=== PATIENT | male | born 1965 | race Caucasian/White ===

== ENCOUNTER 2016-11-07 08:28 | Emergency (ER) | payer BC, OTHER ==
[~2016-11-07] VITALS: Ht 188 cm; Wt 108.9 kg
[~2016-11-07 08:28] MED LIST: ADVAIR HFA115 MCG/21 INH; BACTRIM DS TAB1 EACH PO; BENZONATATE100 MG PO; CEFUROXIME250 MG PO; CLARITIN10 MG PO; COLACE 100 MG100 MG PO; COLCRYS0.6 MG PO; DOXYCYCLINE 10100 MG PO; ELIMITE60 GM TP; ERYTHROMYCIN E3.5 G1 OP; FLOMAX0.4 MG PO; FLONASE 0.05%50 MCG NASAL; FOLIC ACID 1 MG1 MG PO; FOLIC ACID1 MG PO; GARAMYCIN5 M1 OP; IBUPROFEN 600600 M1 PO; INDOMETHACIN 2525 MG PO; KEFLEX500 MG PO; LEVAQUIN 500 M500 M2 PO; LEVAQUIN 750 M750 MG PO; LORTAB 5-500 T1 EAC1 PO; METHOTREXATE 22.5 MG; NOHOMEMEDICATIONS; NORCO 5-325 TA1 EACH PO; NORFLEX100 MG PO; OSELB75 PO; PAIN MED; PAXIL10 MG; PENICILLIN VK500 M1 PO; PERCOCET 5-3251 EACH PO; PHENERGAN 25 MG25 M1 PO; PREDNISONE 20 M20 MG PO; PROAIR HFA8.5 GM INH; PROTONIX40 M1 PO; SENNA8.6 MG PO; VANCOMYCIN1.25 GM/21 IV; VICODIN 5-3001 EACH PO; ZEGERID 20 MG1 EACH PO; ZITHROMAX250 MG NG; ZPAK PO
[2016-11-07] MEDS ORDERED: PROTONIX 20 MG20 M1 PO (09:08)
[2016-11-07] MEDS ORDERED: TOBREX5 ML OPHTHALMIC (10:00)
[2016-11-07] MEDS ORDERED: NORCO 5-325 TA1 EACH PO (10:00)
== END 2016-11-07 11:09 | disposition home or self-care (01) ==
LOC: ER 08:28
DX: S05.01XA Injury of conjunctiva and corneal abrasion without foreign body, right eye, initial encounter (principal); H20.9 Unspecified iridocyclitis; M06.9 Rheumatoid arthritis, unspecified; Z98.890 Other specified postprocedural states; X58.XXXA Exposure to other specified factors, initial encounter; Y93.89 Activity, other specified; Y92.89 Other specified places as the place of occurrence of the external cause; Y99.8 Other external cause status

== ENCOUNTER 2016-11-27 08:39 | Inpatient (IN) | payer BC, OTHER ==
[2016-11-27] VITALS (7 sets, daily range): BP systolic 87–123; BP diastolic 55–80
[~2016-11-27] VITALS: Ht 188 cm; Wt 119.2 kg
--- NOTE | ~2016-11-27 | 2DMMODE ---
[facility] [address] [address] 2 D/M-MODE ECHOCARDIOGRAM Name: JODY HASSAN Room #: 213-P ADM IN M.R.#: [id number] Admission: 11/27/16 Attend Phys: Payam Ch Discharge: Date of : 61 Date of Service: 11/28/16 1048 Report #: [id number] THIS REPORT FOR: //name// APPROVED REPORT Study performed: 11/28/2016 09:36:26 EXAM: Comprehensive 2D, Doppler, and color-flow Echocardiogram Patient Location: Bedside Room #: 213 Status: routine Other Information Study Quality: Adequate Indications Chest Pain Hx SOA, CP radiates to jaw 2D Dimensions RVDd: 31.51 mm LVEF(%): 65.80 (>50%) IVSd: 11.46 (7-11mm) LVOT Diam: 23.00 (18-24mm) LVDd: 48.37 mm PWd: 10.10 (7-11mm) Ascending Ao: 34.21 (22-36mm) LVDs: 30.84 (25-40mm) Aortic Root: 37.70 mm Thomas's LVEF: 65.80 % Volumes Left Atrial Volume (Systole) Single Plane 4CH: 30.48 mL Single Plane 2CH: 41.71 mL LA ESV Index: 17.00 mL/m2 Aortic Valve AoV Peak Berhane.: 1.24 m/s AO Peak Gr.: 6.15 mmHg LVOT Max P.22 mmHg LVOT Max V: 1.14 m/s OLEKSANDR Vmax: 3.82 cm2 Mitral Valve E/A Ratio: 1.8 MV Decel. Time: 232.47 ms MV E Max Berhane.: 1.03 m/s MV A Berhane.: 0.56 m/s MV PHT: 67.42 ms [facility] [place] [address] 2 D/M-MODE ECHOCARDIOGRAM Name: JODY HASSAN Room #: 213-P [facility] IN .R.#: [id number] Admission: 11/27/16 Attend Phys: Payam Ch Discharge: Date of : 61 Date of Service: 11/28/16 1048 Report #: [id number] IVRT: 110.73 ms Pulmonary Valve PV Peak Berhane.: 0.90 m/s PV Peak Gr.: 3.22 mmHg Pulmonary Vein P Vein S: 0.45 m/s P Vein A: 0.25 m/s P Vein D: 0.41 m/s P Vein A Dur.: 96.9 msec P Vein S/D Ratio: 1.10 Tricuspid Valve TR Peak Berhane.: 2.48 m/s RAP Estimate: 5.00 mmHg TR Peak Gr.: 24.57 mmHg PA Pressure: 30.00 mmHg Left Ventricle The left ventricle is normal size. There is normal LV segmental wall motion. There is normal left ventricular wall thickness. The left ventricular systolic function is normal. The left ventricular ejection fraction is within the normal range. LVEF is 55-60%. The left ventricular diastolic function is normal. Right Ventricle The right ventricle is normal size. The right ventricular systolic function is normal. Atria The left atrium size is normal. The right atrium size is normal. Aortic Valve Aortic valve leaflets are thickened. No aortic regurgitation is present. There is no aortic valvular stenosis. Mitral Valve The mitral valve is normal in structure. There is no mitral valve regurgitation noted. No evidence of mitral valve stenosis. Tricuspid Valve The tricuspid valve is normal in structure. There is trace tricuspid regurgitation. The right atrial pressure is estimated at 5 mmHg. There is mild pulmonary hypertension with an estimated PAP of 30 mmHg. Pulmonic Valve The pulmonary valve is normal in structure. [place] [address] 2 D/M-MODE ECHOCARDIOGRAM Name: JODY HASSAN Room #: 213-P [facility] IN ..#: [id number] Admission: 11/27/16 Attend Phys: Payam Ch Discharge: Date of : 61 Date of Service: 11/28/16 1048 Report #: [id number] valvular regurgitation. Great Vessels The aortic root is normal in size. The ascending aorta is normal in size. IVC is normal in size and collapses >50% with inspiration. Pericardium There is no pericardial effusion. <Conclusion> The left ventricle is normal size. LVEF is 55-60%. Aortic valve leaflets are thickened. No aortic regurgitation is present. There is no aortic valvular stenosis. The mitral valve is normal in structure. There is no mitral valve regurgitation noted. No evidence of mitral valve stenosis. The tricuspid valve is normal in structure. There is trace tricuspid regurgitation. The right atrial pressure is estimated at 5 mmHg. There is mild pulmonary hypertension with an estimated PAP of 30 mmHg. The pulmonary valve is normal in structure. <ELECTRONICALLY SIGNED> By: Niko Ness MD 11/28/16 1048 1048 1048 Niko Ness MD /INF
[~2016-11-27 08:39] MED LIST changes: +PROTONIX 20 MG20 M1 PO; +TOBREX5 ML OPHTHALMIC
[2016-11-27] MEDS ORDERED: XELJANZ XR11 MG PO (08:51)
[2016-11-27 09:08] LABS: ABSOLUTE NEUTROPHILS 5.2 thou/uL (1.4-8.2); BASOPHILS 0.4 % (0.0-2.0); HEMATOCRIT 43.5 % (42.0-52.0); LYMPHOCYTES 17.4 % (24.0-44.0); MCH 33.2 pg (26.0-34.0); MCHC 34.5 g/dL (28.0-37.0); MCV 96.4 fL (80.0-100.0); MONOCYTES 4.3 % (1.0-8.0); PLATELET COUNT 175 thou/uL (150-400); POLYS 73.9 % (36.0-66.0); RBC 4.52 mil/uL (4.50-6.00); RDW 13.5 % (10.5-14.5)
[2016-11-27 09:09] LABS: MANUAL DIFF NO
[2016-11-27 09:16] LABS: ANION GAP 8 mmol/L (7-16); BUN 16 mg/dL (7-18); CALCIUM 8.5 mg/dL (8.5-10.1); CHLORIDE 106 mmol/L (98-107); CO2 23 mmol/L (21-32); GLUCOSE 111 mg/dL (74-106); SODIUM 137 mmol/L (136-145)
[2016-11-27 09:20] LABS: PROTIME 10.7 Seconds (9.3-11.4)
[2016-11-27 09:27] LABS: ALBUMIN 3.4 g/dL (3.4-5.0); ALKALINE PHOSPHATASE 93 U/L (46-116); NT-PRO BRAIN NAT PEPTIDE 29 pg/mL (<300); SGOT 39 U/L (15-37); SGPT 69 U/L (30-65); TOTAL BILIRUBIN 2.1 mg/dL (<0.1-1.0); TROPONIN-I < 0.04 ng/mL (<0.04-0.07)
[2016-11-28 03:51] LABS: CHOLESTEROL 159 mg/dL (<200); HDL CHOLESTEROL 35 mg/dL (>40); LDL CHOLESTEROL 110 mg/dL (<100); TC:HDL 4.5 Ratio (Not establshd); TRIGLYCERIDE 71 mg/dL (<150); VLDL 14 mg/dL (<40)
[2016-11-28 03:52] VITALS: BP 97/55
[2016-11-28 07:26] VITALS: BP 106/63
[2016-11-28 11:52] VITALS: BP 125/75
[2016-11-28 12:04] LABS: ALBUMIN 3.1 g/dL (3.4-5.0); DIRECT BILIRUBIN 0.2 mg/dL (<0.1-0.3); TOTAL BILIRUBIN 1.3 mg/dL (<0.1-1.0); TOTAL PROTEIN 6.5 g/dL (6.4-8.2)
[2016-11-28 12:45] VITALS: BP 125/75
[2016-11-28 14:08] VITALS: BP 125/75
== END 2016-11-28 14:05 | disposition home or self-care (01) | DRG 313 ==
LOC: ER 08:39 → 2N 11:26 → EROBS 11:26 → 2N 12:43
PROVIDERS: Emergency Medicine; Family Medicine; Nurse Practitioner
DX: R07.89 Other chest pain (principal); K29.70 Gastritis, unspecified, without bleeding; B35.4 Tinea corporis; M06.9 Rheumatoid arthritis, unspecified; K57.90 Diverticulosis of intestine, part unspecified, without perforation or abscess without bleeding; R91.8 Other nonspecific abnormal finding of lung field; K21.9 Gastro-esophageal reflux disease without esophagitis; Z79.899 Other long term (current) drug therapy; Z88.0 Allergy status to penicillin; Z87.01 Personal history of pneumonia (recurrent); Z86.14 Personal history of Methicillin resistant Staphylococcus aureus infection; Z83.3 Family history of diabetes mellitus; Z82.49 Family history of ischemic heart disease and other diseases of the circulatory system; Z80.9 Family history of malignant neoplasm, unspecified
CPT/HCPCS: 10081

== ENCOUNTER 2017-01-22 10:36 | Emergency (ER) | payer BC, OTHER ==
[~2017-01-22] VITALS: Ht 188 cm; Wt 108.9 kg
[~2017-01-22 10:36] MED LIST changes: +XELJANZ XR11 MG PO
[2017-01-22] MEDS ORDERED: NORFLEX100 MG PO (12:09)
[2017-01-22] MEDS ORDERED: MEDROLDOSEPACK PO (12:09)
== END 2017-01-22 12:28 | disposition home or self-care (01) ==
LOC: ER 10:36
DX: M54.32 Sciatica, left side (principal); B35.9 Dermatophytosis, unspecified; M70.62 Trochanteric bursitis, left hip; M06.9 Rheumatoid arthritis, unspecified; Z87.01 Personal history of pneumonia (recurrent); Z98.890 Other specified postprocedural states; Z88.0 Allergy status to penicillin

== ENCOUNTER 2017-02-19 18:36 | Emergency (ER) | payer BC, OTHER ==
[~2017-02-19] VITALS: Ht 188 cm; Wt 108.9 kg
[~2017-02-19 18:36] MED LIST changes: +MEDROLDOSEPACK PO
[2017-02-19 19:27] LABS: CALCIUM 8.5 mg/dL (8.5-10.1); POTASSIUM 3.8 mmol/L (3.5-5.1)
[2017-02-19 19:38] LABS: ABSOLUTE NEUTROPHILS 5.4 thou/uL (1.4-8.2); BASOPHILS 0.6 % (0.0-2.0); EOSINOPHILS 2.6 % (0.0-3.0); HEMATOCRIT 42.4 % (42.0-52.0); HEMOGLOBIN 15.2 gm/dL (14.0-18.0); LYMPHOCYTES 23.2 % (24.0-44.0); MANUAL DIFF NO; MCH 33.6 pg (26.0-34.0); MCHC 35.8 g/dL (28.0-37.0); MCV 93.7 fL (80.0-100.0); MONOCYTES 9.9 % (1.0-8.0); PLATELET COUNT 171 thou/uL (150-400); POLYS 63.7 % (36.0-66.0); RBC 4.53 mil/uL (4.50-6.00); RDW 13.1 % (10.5-14.5); WBC 8.4 thou/uL (4.0-11.0)
== END 2017-02-19 20:24 | disposition home or self-care (01) ==
LOC: ER 18:36
PROVIDERS: Nurse Practitioner
DX: J06.9 Acute upper respiratory infection, unspecified (principal); Z88.0 Allergy status to penicillin; M06.9 Rheumatoid arthritis, unspecified

== ENCOUNTER 2017-02-25 20:11 | Emergency (ER) | payer BC, OTHER ==
[~2017-02-25] VITALS: Ht 188 cm; Wt 108.9 kg
--- NOTE | ~2017-02-25 | EKG ---
[address] [place] [address] ELECTROCARDIOGRAM REPORT Name: JODY HASSAN [facility] [id number] Admission: 02/25/17 Attend Phys: Discharge: 02/25/17 Date of : 61 Report #: [id number] THIS REPORT FOR: //name// [facility] ED Test Date: 2017-02-25 Test Time: 20:28:52 Pat Name: JODY HASSAN Department: Room: Gender: M Toe Stapler: [id number] : 1965 Requested By: Ty Lopez Order Number: [id number] MD: Dominick Weinstein Measurements Intervals [place] Rate: 67 P: 35 MD: 163 QRS: 8 QRSD: 98 T: 13 QT: 390 QTc: 412 Interpretive Statements Sinus rhythm No significant abnormality Compared to ECG 06/28/2016 23:12:12 No significant changes Electronically Signed On 02-26-2017 7:41:16 CDT by Dominick Weinstein [email or web address] <ELECTRONICALLY SIGNED> By: Dominick Weinstein MD, [facility] 02/26/17 0741 27 27 Dominick Weinstein MD, FACC /EPI
[2017-02-25 21:05] LABS: ABSOLUTE NEUTROPHILS 5.2 thou/uL (1.4-8.2); BASOPHILS 0.9 % (0.0-2.0); EOSINOPHILS 3.8 % (0.0-3.0); HEMATOCRIT 39.6 % (42.0-52.0); HEMOGLOBIN 13.9 gm/dL (14.0-18.0); LYMPHOCYTES 23.4 % (24.0-44.0); MCH 32.8 pg (26.0-34.0); MCHC 35.1 g/dL (28.0-37.0); MCV 93.3 fL (80.0-100.0); MONOCYTES 8.6 % (1.0-8.0); PLATELET COUNT 207 thou/uL (150-400); POLYS 63.3 % (36.0-66.0); RBC 4.24 mil/uL (4.50-6.00); RDW 12.9 % (10.5-14.5); WBC 8.2 thou/uL (4.0-11.0)
[2017-02-25 21:06] LABS: MANUAL DIFF NO
[2017-02-25 21:18] LABS: ANION GAP 9 mmol/L (7-16); BUN 21 mg/dL (7-18); CALCIUM 8.7 mg/dL (8.5-10.1); CHLORIDE 108 mmol/L (98-107); CO2 23 mmol/L (21-32); CREATININE 0.8 mg/dL (0.7-1.3); GLUCOSE 109 mg/dL (74-106); POTASSIUM 4.1 mmol/L (3.5-5.1); SODIUM 140 mmol/L (136-145)
[2017-02-25 21:27] LABS: TROPONIN-I < 0.04 ng/mL (<0.04-0.07)
[2017-02-25] MEDS ORDERED: ZPAK PO (22:54)
== END 2017-02-25 23:17 | disposition home or self-care (01) ==
LOC: ER 20:11
PROVIDERS: Emergency Medicine
DX: J18.8 Other pneumonia, unspecified organism (principal); M06.9 Rheumatoid arthritis, unspecified; Z98.890 Other specified postprocedural states; Z88.0 Allergy status to penicillin

== ENCOUNTER 2017-05-13 20:23 | Emergency (ER) | payer BC, OTHER ==
[~2017-05-13] VITALS: Ht 188 cm; Wt 104.3 kg
--- NOTE | ~2017-05-13 | EKG ---
[address] [place] [employer] [place] [address] ELECTROCARDIOGRAM REPORT Name: JODY HASSAN [id number] Admission: 05/13/17 Attend Phys: Discharge: 05/13/17 Date of : 61 Report #: [id number] THIS REPORT FOR: //name// [facility] ED Test Date: 2017-05-13 Test Time: 21:25:16 Pat Name: JODY HASSAN Department: Room: Gender: M Tubing Supervisor: : 1965 Requested By: Victorino Mauricio Order Number: [id number] MD: Dominick Weinstein Measurements Intervals [place] Rate: 56 P: 43 ME: 168 QRS: 14 QRSD: 104 T: 3 QT: 421 QTc: 407 Interpretive Statements Sinus rhythm Normal Compared to ECG 02/25/2017 20:28:52 No significant changes Electronically Signed On 05-15-2017 9:04:49 GAS ROLLER OPERATOR by Dominick Weinstein [email or web address] <ELECTRONICALLY SIGNED> By: Dominick Weinstein MD, [facility] 05/15/17 0904 212 24 Dominick Weinstein MD, FACC /EPI
[2017-05-13] MEDS ORDERED: NAPROSYN500 MG PO (21:38)
[2017-05-13] MEDS ORDERED: ACETAMINOPHEN-1 EAC1 PO (21:38)
== END 2017-05-13 22:48 | disposition home or self-care (01) ==
LOC: ER 20:23
DX: S23.41XA Sprain of ribs, initial encounter (principal); M06.9 Rheumatoid arthritis, unspecified; Z88.0 Allergy status to penicillin; X50.0XXA Overexertion from strenuous movement or load, initial encounter; Y93.89 Activity, other specified; Y92.89 Other specified places as the place of occurrence of the external cause; Y99.8 Other external cause status

== ENCOUNTER 2017-07-09 08:06 | Emergency (ER) | payer BC, OTHER ==
[~2017-07-09] VITALS: Ht 188 cm; Wt 99.8 kg
--- NOTE | ~2017-07-09 | EKG ---
[address] [place] [address] ELECTROCARDIOGRAM REPORT Name: JODY HASSAN [facility] [id number] Admission: 07/09/17 Attend Phys: Discharge: 07/09/17 Date of : 61 Report #: [id number] THIS REPORT FOR: //name// [facility] ED Test Date: 2017-07-09 Test Time: 09:04:21 Pat Name: JODY HASSAN Department: Room: Gender: M Inspection Clerk: [facility] : 1965 Requested By: Victorino Mauricio Order Number: [id number] MD: Gregg Estes Measurements Intervals [place] Rate: 55 P: 42 AR: 173 QRS: 12 QRSD: 99 T: 19 QT: 429 QTc: 411 Interpretive Statements Sinus rhythm Compared to ECG 05/13/2017 21:25:16 No significant changes Electronically Signed On 07-09-2017 16:20:52 WAITER by Gregg Estes [email or web address] <ELECTRONICALLY SIGNED> By: Gregg Estes MD 07/09/17 1620 0904 09 MD LUCHO Nunez
[~2017-07-09 08:06] MED LIST changes: +ACETAMINOPHEN-1 EAC1 PO; +NAPROSYN500 MG PO
[2017-07-09 08:56] LABS: BASOPHILS 0.9 % (0.0-2.0); EOSINOPHILS 4.3 % (0.0-3.0); HEMATOCRIT 42.2 % (42.0-52.0); HEMOGLOBIN 14.5 gm/dL (14.0-18.0); LYMPHOCYTES 35.8 % (24.0-44.0); MCH 32.3 pg (26.0-34.0); MCHC 34.3 g/dL (28.0-37.0); MCV 94.2 fL (80.0-100.0); PLATELET COUNT 203 thou/uL (150-400); RBC 4.48 mil/uL (4.50-6.00); WBC 5.8 thou/uL (4.0-11.0)
[2017-07-09 09:03] LABS: ANION GAP 6 mmol/L (7-16); BUN 13 mg/dL (7-18); CALCIUM 8.4 mg/dL (8.5-10.1); CHLORIDE 108 mmol/L (98-107); CO2 27 mmol/L (21-32); GLUCOSE 108 mg/dL (74-106); POTASSIUM 3.9 mmol/L (3.5-5.1); SODIUM 141 mmol/L (136-145)
[2017-07-09 09:12] LABS: ALBUMIN 3.3 g/dL (3.4-5.0); MAGNESIUM 2.1 mg/dL (1.8-2.4); SGOT 35 U/L (15-37); SGPT 54 U/L (30-65); TOTAL BILIRUBIN 1.1 mg/dL (<0.1-1.0); TOTAL PROTEIN 6.5 g/dL (6.4-8.2); TROPONIN-I < 0.04 ng/mL (<0.06)
[2017-07-09 10:29] LABS: URINE BILIRUBIN NEGATIVE (Negative); URINE BLOOD NEGATIVE (Negative); URINE CLARITY CLEAR; URINE COLOR YELLOW; URINE GLUCOSE-RANDOM* NEGATIVE (Negative); URINE KETONES NEGATIVE (Negative); URINE LEUKOCYTES-REFLEX NEGATIVE (Negative); URINE NITRITE-REFLEX NEGATIVE (Negative); URINE PROTEIN (DIPSTICK) NEGATIVE (Negative); URINE UROBILINOGEN 0.2 E.U./dl (0.2-1.0)
[2017-07-09 10:46] LABS: AMP/METHAMP Negative (Negative); BARBITURATES Negative (Negative); BENZODIAZEPINES Negative (Negative); COCAINE Negative (Negative); METHADONE Negative (Negative); OPIATES Negative (Negative); PCP Negative (Negative)
[2017-07-09 11:30] VITALS: BP 102/75
[2017-07-09] MEDS ORDERED: NITROGLYCERIN0.4 MG SUBLING (11:36)
[2017-07-09] MEDS ORDERED: ZOFRAN ODT8 MG PO (11:36)
[2017-07-09] MEDS ORDERED: BUTALB-APAP-CA1 EACH PO (11:36)
== END 2017-07-09 11:55 | disposition left against medical advice (07) ==
LOC: ER 08:06
PROVIDERS: Emergency Medicine
DX: R07.9 Chest pain, unspecified (principal); R06.00 Dyspnea, unspecified; R51 Headache; R42 Dizziness and giddiness; M19.90 Unspecified osteoarthritis, unspecified site; Z87.01 Personal history of pneumonia (recurrent); Z88.0 Allergy status to penicillin

== ENCOUNTER 2017-08-10 08:41 | Emergency (ER) | payer BC, OTHER ==
[~2017-08-10] VITALS: Ht 188 cm; Wt 108.9 kg
--- NOTE | ~2017-08-10 | EKG ---
[address] [address] [facility] [place] [address] ELECTROCARDIOGRAM REPORT Name: JODY HASSAN [facility] [id number] Admission: 08/10/17 Attend Phys: Discharge: 08/10/17 Date of : 61 Report #: [id number] THIS REPORT FOR: //name// [facility] ED Test Date: 2017-08-10 Test Time: 08:55:09 Pat Name: JODY HASSAN Department: Room: Gender: M Automatic Lehr Operator: KF : 1965 Requested By: Monique Hopson Order Number: [id number] MD: Dominick Weinstein Measurements Intervals [place] Rate: 58 P: 39 DE: 170 QRS: 13 QRSD: 103 T: 7 QT: 396 QTc: 389 Interpretive Statements Sinus bradycardia Otherwise normal tracing Compared to ECG 07/09/2017 09:04:21 No significant changes Electronically Signed On 08-11-2017 10:18:44 CDT by Dominick Weinstein [email or web address] <ELECTRONICALLY SIGNED> By: Dominick Weinstein MD, [facility] 08/11/17 1018 0855 0855 Dominick Weinstein MD, FACC /EPI
[~2017-08-10 08:41] MED LIST changes: +BUTALB-APAP-CA1 EACH PO; +NITROGLYCERIN0.4 MG SUBLING; +ZOFRAN ODT8 MG PO
[2017-08-10] MEDS ORDERED: XELJANZ XR11 MG PO (08:52)
[2017-08-10 09:09] LABS: ABSOLUTE NEUTROPHILS 5.2 thou/uL (1.4-8.2); BASOPHILS 0.4 % (0.0-2.0); EOSINOPHILS 1.6 % (0.0-3.0); HEMATOCRIT 44.4 % (42.0-52.0); HEMOGLOBIN 15.6 gm/dL (14.0-18.0); LYMPHOCYTES 14.2 % (24.0-44.0); MCH 32.9 pg (26.0-34.0); MCHC 35.1 g/dL (28.0-37.0); MCV 93.9 fL (80.0-100.0); MONOCYTES 9.7 % (1.0-8.0); PLATELET COUNT 173 thou/uL (150-400); POLYS 74.1 % (36.0-66.0); RBC 4.73 mil/uL (4.50-6.00); RDW 13.3 % (10.5-14.5); WBC 7.1 thou/uL (4.0-11.0)
[2017-08-10 09:17] LABS: ANION GAP 9 mmol/L (7-16); BUN 14 mg/dL (7-18); CHLORIDE 107 mmol/L (98-107); CO2 24 mmol/L (21-32); CREATININE 1.2 mg/dL (0.7-1.3); GLUCOSE 120 mg/dL (74-106); POTASSIUM 3.8 mmol/L (3.5-5.1); SODIUM 140 mmol/L (136-145)
[2017-08-10 09:26] LABS: TROPONIN-I < 0.04 ng/mL (<0.06)
[2017-08-10] MEDS ORDERED: LEVAQUIN 500 M500 M1 PO (10:06)
[2017-08-10] MEDS ORDERED: PROAIR HFA8.5 GM INH (10:06)
[2017-08-10 10:14] VITALS: BP 119/68
== END 2017-08-10 10:20 | disposition home or self-care (01) ==
LOC: ER 08:41
PROVIDERS: Emergency Medicine
DX: J15.9 Unspecified bacterial pneumonia (principal); R11.10 Vomiting, unspecified; Z88.0 Allergy status to penicillin; M06.9 Rheumatoid arthritis, unspecified

== ENCOUNTER 2017-08-15 18:37 | Emergency (ER) | payer BC, OTHER ==
[~2017-08-15] VITALS: Ht 188 cm; Wt 108.9 kg
--- NOTE | ~2017-08-15 | EKG ---
[address] [place] [address] ELECTROCARDIOGRAM REPORT Name: JODY HASSAN [facility] [id number] Admission: 08/15/17 Attend Phys: Discharge: 08/15/17 Date of : 61 Report #: [id number] THIS REPORT FOR: //name// [facility] ED Test Date: 2017-08-15 Test Time: 18:49:19 Pat Name: JODY HASSAN Department: Room: Gender: M River Pilot: Candida SCOTT : 1965 Requested By: Monique Hopson Order Number: [id number] MD: Dominick Weinstein Measurements Intervals [place] Rate: 68 P: 35 [place]: 167 QRS: 9 QRSD: 100 T: 9 QT: 387 QTc: 412 Interpretive Statements Sinus rhythm No significant abnormality Compared to ECG 08/10/2017 08:55:09 Sinus bradycardia no longer present Electronically Signed On 08-16-2017 14:04:39 CDT by Dominick Weinstein [email or web address] <ELECTRONICALLY SIGNED> By: Dominick Weinstein MD, [facility] 08/16/17 1404 1849 1849 Dominick Weinstein MD, FACC /EPI
[~2017-08-15 18:37] MED LIST changes: +LEVAQUIN 500 M500 M1 PO
[2017-08-15 19:14] LABS: ABSOLUTE NEUTROPHILS 2.1 thou/uL (1.4-8.2); BASOPHILS 0.6 % (0.0-2.0); HEMATOCRIT 40.5 % (42.0-52.0); HEMOGLOBIN 14.1 gm/dL (14.0-18.0); LYMPHOCYTES 42.9 % (24.0-44.0); MCH 32.7 pg (26.0-34.0); MCHC 34.9 g/dL (28.0-37.0); MCV 93.6 fL (80.0-100.0); MONOCYTES 11.9 % (1.0-8.0); PLATELET COUNT 179 thou/uL (150-400); POLYS 42.6 % (36.0-66.0); RBC 4.33 mil/uL (4.50-6.00); RDW 13.1 % (10.5-14.5); WBC 4.8 thou/uL (4.0-11.0)
[2017-08-15 19:22] LABS: CALCIUM 8.4 mg/dL (8.5-10.1); CREATININE 1.3 mg/dL (0.7-1.3); POTASSIUM 3.7 mmol/L (3.5-5.1)
[2017-08-15] MEDS ORDERED: TUSSIONEX PENN115 ML PO (19:44)
[2017-08-15] MEDS ORDERED: PROAIR HFA8.5 GM INH (19:44)
[2017-08-15 20:25] VITALS: BP 127/86
== END 2017-08-15 20:29 | disposition home or self-care (01) ==
LOC: ER 18:37
PROVIDERS: Emergency Medicine
DX: J18.9 Pneumonia, unspecified organism (principal); M77.9 Enthesopathy, unspecified; M79.671 Pain in right foot; M06.9 Rheumatoid arthritis, unspecified; Z86.14 Personal history of Methicillin resistant Staphylococcus aureus infection; Z88.0 Allergy status to penicillin

== ENCOUNTER 2017-11-09 21:03 | Emergency (ER) | payer BC, OTHER ==
[~2017-11-09] VITALS: Ht 188 cm; Wt 108.9 kg
--- NOTE | ~2017-11-09 | EKG ---
[address] [place] [place] [address] ELECTROCARDIOGRAM REPORT Name: JODY HASSAN [facility] [id number] Admission: 11/09/17 Attend Phys: Discharge: 11/10/17 Date of : 61 Report #: [id number] THIS REPORT FOR: //name// [facility] ED Test Date: 2017-11-09 Test Time: 22:20:14 Pat Name: JODY HASSAN Department: Room: Gender: M Business Data Analyst: JUN : 1965 Requested By: Victorino Mauricio Order Number: [id number] MD: Dominick Weinstein Measurements Intervals [place] Rate: 55 P: 43 ND: 166 QRS: 15 QRSD: 93 T: 19 QT: 416 QTc: 398 Interpretive Statements Sinus bradycardia Otherwise no significant abnormality Compared to ECG 08/15/2017 18:49:19 No significant changes Electronically Signed On 11-10-2017 15:46:58 CDT by Dominick Weinstein [email or web address] <ELECTRONICALLY SIGNED> By: Dominick Weinstein MD, [facility] 11/10/17 1546 2220 19 Dominick Weinstein MD, FACC /EPI
[~2017-11-09 21:03] MED LIST changes: +TUSSIONEX PENN115 ML PO
[2017-11-09 22:27] LABS: URINE BILIRUBIN NEGATIVE (Negative); URINE BLOOD NEGATIVE (Negative); URINE CLARITY CLEAR; URINE COLOR YELLOW; URINE GLUCOSE-RANDOM* NEGATIVE (Negative); URINE KETONES NEGATIVE (Negative); URINE LEUKOCYTES-REFLEX NEGATIVE (Negative); URINE NITRITE-REFLEX NEGATIVE (Negative); URINE PROTEIN (DIPSTICK) NEGATIVE (Negative); URINE SPECIFIC GRAVITY >= 1.030 (1.005-1.035)
[2017-11-09 22:51] LABS: ABSOLUTE NEUTROPHILS 5.2 thou/uL (1.4-8.2); BASOPHILS 0.6 % (0.0-2.0); EOSINOPHILS 3.2 % (0.0-3.0); HEMATOCRIT 41.1 % (42.0-52.0); HEMOGLOBIN 14.3 gm/dL (14.0-18.0); LYMPHOCYTES 16.9 % (24.0-44.0); MCH 33.2 pg (26.0-34.0); MCHC 34.9 g/dL (28.0-37.0); MCV 95.3 fL (80.0-100.0); PLATELET COUNT 154 thou/uL (150-400); POLYS 68.3 % (36.0-66.0); RBC 4.32 mil/uL (4.50-6.00); RDW 13.6 % (10.5-14.5); WBC 7.6 thou/uL (4.0-11.0)
[2017-11-09 23:00] LABS: ANION GAP 6 mmol/L (7-16); BUN 14 mg/dL (7-18); CALCIUM 8.4 mg/dL (8.5-10.1); CHLORIDE 109 mmol/L (98-107); CO2 27 mmol/L (21-32); GLUCOSE 117 mg/dL (74-106); POTASSIUM 3.8 mmol/L (3.5-5.1); SODIUM 142 mmol/L (136-145)
[2017-11-09 23:08] LABS: ALBUMIN 3.1 g/dL (3.4-5.0); LIPASE 139 U/L (73-393); SGOT 28 U/L (15-37); SGPT 43 U/L (30-65); TOTAL PROTEIN 6.4 g/dL (6.4-8.2); TROPONIN-I < 0.04 ng/mL (<0.06)
[2017-11-09] MEDS ORDERED: NORFLEX100 MG PO (23:12)
[2017-11-09] MEDS ORDERED: PEPCID20 MG PO (23:12)
== END 2017-11-10 00:01 | disposition home or self-care (01) ==
LOC: ER 21:03
PROVIDERS: Emergency Medicine; Nurse Practitioner Family
DX: J06.9 Acute upper respiratory infection, unspecified (principal); R10.13 Epigastric pain; J02.9 Acute pharyngitis, unspecified; R19.7 Diarrhea, unspecified; M54.5 Low back pain; M06.9 Rheumatoid arthritis, unspecified; Z88.0 Allergy status to penicillin

== ENCOUNTER 2017-11-26 13:46 | Emergency (ER) | payer BC, OTHER ==
[~2017-11-26] VITALS: Ht 188 cm; Wt 108.9 kg
--- NOTE | ~2017-11-26 | EKG ---
[address] [address] [place] [address] ELECTROCARDIOGRAM REPORT Name: JODY HASSAN [id number] Admission: 11/26/17 Attend Phys: Discharge: Date of : 61 Report #: [id number] THIS REPORT FOR: //name// [facility] ED Test Date: 2017-11-26 Test Time: 14:57:28 Pat Name: JODY HASSAN Department: Room: Gender: M Desk Representative: MZOOK : 1965 Requested By: Steph Bruce Order Number: [id number] MD: Dominick Weinstein Measurements Intervals [place] Rate: 51 P: 21 AR: 176 QRS: 18 QRSD: 106 T: 16 QT: 440 QTc: 406 Interpretive Statements Sinus bradycardia Otherwise no significant abnormality Compared to ECG 11/09/2017 22:20:14 No significant change was found Electronically Signed On 11-26-2017 17:23:17 CDT by Dominick Weinstein [email or web address] <ELECTRONICALLY SIGNED> By: Dominick Weinstein MD, [facility] 11/26/17 1723 1457 1457 Dominick Weinstein MD, FACC /EPI
[~2017-11-26 13:46] MED LIST changes: +PEPCID20 MG PO
[2017-11-26 16:25] LABS: ABSOLUTE NEUTROPHILS 3.6 thou/uL (1.4-8.2); BASOPHILS 0.6 % (0.0-2.0); EOSINOPHILS 2.9 % (0.0-3.0); HEMATOCRIT 37.7 % (42.0-52.0); HEMOGLOBIN 13.2 gm/dL (14.0-18.0); LYMPHOCYTES 30.5 % (24.0-44.0); MCH 33.2 pg (26.0-34.0); MCHC 35.1 g/dL (28.0-37.0); MCV 94.6 fL (80.0-100.0); MONOCYTES 8.1 % (1.0-8.0); PLATELET COUNT 190 thou/uL (150-400); POLYS 57.9 % (36.0-66.0); RBC 3.99 mil/uL (4.50-6.00); RDW 13.7 % (10.5-14.5); WBC 6.2 thou/uL (4.0-11.0)
[2017-11-26 16:35] LABS: ANION GAP 6 mmol/L (7-16); BUN 13 mg/dL (7-18); CALCIUM 8.1 mg/dL (8.5-10.1); CHLORIDE 109 mmol/L (98-107); CO2 26 mmol/L (21-32); GLUCOSE 107 mg/dL (74-106); POTASSIUM 3.7 mmol/L (3.5-5.1); SODIUM 141 mmol/L (136-145)
[2017-11-26 16:43] LABS: ALBUMIN 3.2 g/dL (3.4-5.0); LIPASE 109 U/L (73-393); SGOT 41 U/L (15-37); SGPT 53 U/L (30-65); TOTAL BILIRUBIN 1.2 mg/dL (<0.1-1.0); TOTAL PROTEIN 6.2 g/dL (6.4-8.2); TROPONIN-I <0.06 ng/mL (<0.06)
== END 2017-11-26 17:30 | disposition home or self-care (01) ==
LOC: ER 13:46
PROVIDERS: Nurse Practitioner Family
DX: B35.9 Dermatophytosis, unspecified (principal); R07.9 Chest pain, unspecified; M19.90 Unspecified osteoarthritis, unspecified site; Z87.01 Personal history of pneumonia (recurrent)

== ENCOUNTER 2018-03-18 09:41 | Emergency (ER) | payer BC, OTHER ==
[~2018-03-18] VITALS: Ht 188 cm; Wt 108.9 kg
--- NOTE | ~2018-03-18 | EKG ---
[address] [address] ELECTROCARDIOGRAM REPORT Name: JODY HASSANWIN Room [facility] [id number] Admission: 03/18/18 Attend Phys: Discharge: 03/18/18 Date of : 61 Report #: [id number] THIS REPORT FOR: //name// [facility] ED Test Date: 2018-03-18 Test Time: 09:58:28 Pat Name: JODY HASSAN Department: Room: Gender: M Product Marketing Programs Manager: MAISHA : 1965 Requested By: Iris Cason Order Number: [id number] MD: Gregg Estes Measurements Intervals [place] Rate: 58 P: 33 [place]: 167 QRS: 17 QRSD: 97 T: 15 QT: 394 QTc: 387 Interpretive Statements Sinus rhythm Compared to ECG 11/26/2017 14:57:28 Sinus bradycardia no longer present Electronically Signed On 03-18-2018 13:07:09 CDT by Gregg Estes [email or web address] <ELECTRONICALLY SIGNED> By: Gregg Estes MD 03/18/18 1307 0958 7 Gregg Estes MD /PEPITO
[2018-03-18 10:15] LABS: ABSOLUTE NEUTROPHILS 5.2 thou/uL (1.4-8.2); BASOPHILS 0.3 % (0.0-2.0); EOSINOPHILS 1.8 % (0.0-3.0); HEMATOCRIT 41.7 % (42.0-52.0); HEMOGLOBIN 14.1 gm/dL (14.0-18.0); LYMPHOCYTES 10.3 % (24.0-44.0); MCH 32.2 pg (26.0-34.0); MCHC 33.9 g/dL (28.0-37.0); MCV 94.9 fL (80.0-100.0); PLATELET COUNT 215 thou/uL (150-400); POLYS 80.6 % (36.0-66.0); RBC 4.39 mil/uL (4.50-6.00); RDW 14.1 % (10.5-14.5); WBC 6.4 thou/uL (4.0-11.0)
[2018-03-18 10:25] LABS: ANION GAP 5 mmol/L (7-16); BUN 11 mg/dL (7-18); CALCIUM 9.3 mg/dL (8.5-10.1); CHLORIDE 107 mmol/L (98-107); CO2 30 mmol/L (21-32); CREATININE 1.2 mg/dL (0.7-1.3); GLUCOSE 98 mg/dL (74-106); POTASSIUM 3.1 mmol/L (3.5-5.1); SODIUM 142 mmol/L (136-145)
[2018-03-18 10:33] LABS: TROPONIN-I <0.06 ng/mL (<0.06)
[2018-03-18] MEDS ORDERED: VISTARIL 25 MG25 M1 PO (11:03)
== END 2018-03-18 11:18 | disposition home or self-care (01) ==
LOC: ER 09:41
PROVIDERS: Student in an Organized Health Care Education/Training Program
DX: R05 Cough (principal); R06.02 Shortness of breath; R42 Dizziness and giddiness; R11.0 Nausea; R07.9 Chest pain, unspecified; M06.9 Rheumatoid arthritis, unspecified; Z87.01 Personal history of pneumonia (recurrent); Z83.3 Family history of diabetes mellitus; Z82.49 Family history of ischemic heart disease and other diseases of the circulatory system; Z88.0 Allergy status to penicillin

== ENCOUNTER 2018-03-20 17:43 | Emergency (ER) | payer OTHER, BC ==
[~2018-03-20] VITALS: Ht 157.5 cm; Wt 111.1 kg
[~2018-03-20 17:43] MED LIST changes: +VISTARIL 25 MG25 M1 PO
[2018-03-20] MEDS ORDERED: MOBIC15 MG PO (18:52)
== END 2018-03-20 19:13 | disposition home or self-care (01) ==
LOC: ER 17:43
DX: S61.214A Laceration without foreign body of right ring finger without damage to nail, initial encounter (principal); M06.9 Rheumatoid arthritis, unspecified; Z88.0 Allergy status to penicillin; X50.0XXA Overexertion from strenuous movement or load, initial encounter; Y92.89 Other specified places as the place of occurrence of the external cause; Y99.0 Civilian activity done for income or pay; Y99.8 Other external cause status

== ENCOUNTER 2018-04-02 11:56 | Emergency (ER) | payer BC, OTHER ==
[~2018-04-02] VITALS: Ht 188 cm; Wt 111.1 kg
[~2018-04-02 11:56] MED LIST changes: +MOBIC15 MG PO
[2018-04-02 13:16] LABS: CALCIUM 8.8 mg/dL (8.5-10.1); POTASSIUM 3.9 mmol/L (3.5-5.1)
[2018-04-02 13:19] LABS: HEMATOCRIT 42.9 % (42.0-52.0); MCV 94.4 fL (80.0-100.0); RBC 4.54 mil/uL (4.50-6.00); WBC 5.7 thou/uL (4.0-11.0)
[2018-04-02 13:32] LABS: AMP/METHAMP Negative (Negative); BARBITURATES Negative (Negative); BENZODIAZEPINES Negative (Negative); COCAINE Negative (Negative); METHADONE Negative (Negative); OPIATES Negative (Negative); PCP Negative (Negative)
[2018-04-03 18:59] VITALS: BP 138/72
== END 2018-04-03 19:02 | disposition short-term general hospital (02) ==
LOC: ER 11:56
PROVIDERS: Emergency Medicine
DX: R45.851 Suicidal ideations (principal); B35.4 Tinea corporis; M06.9 Rheumatoid arthritis, unspecified; Z88.0 Allergy status to penicillin

== ENCOUNTER 2018-04-27 16:15 | Emergency (ER) | payer BC, OTHER ==
[~2018-04-27] VITALS: Ht 188 cm; Wt 106.6 kg
[2018-04-27 16:16] VITALS: BP 115/76
[2018-04-27] MEDS ORDERED: NORCO 10-325 T1 EACH PO (16:24)
[2018-04-27] MEDS ORDERED: BACTRIM DS TAB1 EACH PO (16:59)
== END 2018-04-27 17:25 | disposition home or self-care (01) ==
LOC: ER 16:15
DX: L03.114 Cellulitis of left upper limb (principal); L03.116 Cellulitis of left lower limb; L03.113 Cellulitis of right upper limb; L03.221 Cellulitis of neck; Z86.14 Personal history of Methicillin resistant Staphylococcus aureus infection; M06.9 Rheumatoid arthritis, unspecified; Z87.01 Personal history of pneumonia (recurrent); Z88.0 Allergy status to penicillin

== ENCOUNTER → 2018-09-06 | Outpatient (CLI) | payer BC, OTHER ==
[~2018-09-06] MED LIST changes: +NORCO 10-325 T1 EACH PO
== END ==
LOC: CAT 10:43
DX: K44.9 Diaphragmatic hernia without obstruction or gangrene (principal); K57.30 Diverticulosis of large intestine without perforation or abscess without bleeding; N20.0 Calculus of kidney

== ENCOUNTER 2018-10-18 12:50 | Emergency (ER) | payer BC, OTHER ==
[~2018-10-18] VITALS: Ht 188 cm; Wt 104.3 kg
[2018-10-18 13:50] LABS: HEMATOCRIT 41.6 % (42.0-52.0); HEMOGLOBIN 14.4 gm/dL (14.0-18.0); MCH 32.8 pg (26.0-34.0); MCHC 34.5 g/dL (28.0-37.0); MCV 94.8 fL (80.0-100.0); PLATELET COUNT 144 thou/uL (150-400); RBC 4.39 mil/uL (4.50-6.00); RDW 14.1 % (10.5-14.5); WBC 5.7 thou/uL (4.0-11.0)
[2018-10-18 13:59] LABS: CALCIUM 8.3 mg/dL (8.5-10.1); POTASSIUM 3.5 mmol/L (3.5-5.1)
[2018-10-18 14:05] LABS: ALBUMIN 3.2 g/dL (3.4-5.0); TOTAL BILIRUBIN 1.5 mg/dL (<0.1-1.0); TOTAL PROTEIN 6.8 g/dL (6.4-8.2)
[2018-10-18 14:26] LABS: ANISOCYTOSIS 1+
[2018-10-18 15:21] LABS: URINE BILIRUBIN NEGATIVE (Negative); URINE BLOOD NEGATIVE (Negative); URINE CLARITY CLEAR; URINE COLOR YELLOW; URINE GLUCOSE-RANDOM* NEGATIVE (Negative); URINE KETONES NEGATIVE (Negative); URINE LEUKOCYTES-REFLEX NEGATIVE (Negative); URINE NITRITE-REFLEX NEGATIVE (Negative); URINE PROTEIN (DIPSTICK) NEGATIVE (Negative); URINE SPECIFIC GRAVITY 1.025 (1.005-1.035)
[2018-10-18] MEDS ORDERED: DOXYCYCLINE 10100 MG PO (15:36)
[2018-10-18] MEDS ORDERED: VENTOLIN HFA 1818 GM INH (15:37)
[2018-10-18] MEDS ORDERED: TESSALON PERLE100 MG PO (15:37)
[2018-10-18 16:08] VITALS: BP 129/84
== END 2018-10-18 16:09 | disposition home or self-care (01) ==
LOC: ER 12:50
PROVIDERS: Nurse Practitioner Family
DX: J06.9 Acute upper respiratory infection, unspecified (principal); J18.8 Other pneumonia, unspecified organism; J40 Bronchitis, not specified as acute or chronic; R19.7 Diarrhea, unspecified; M06.9 Rheumatoid arthritis, unspecified; Z88.0 Allergy status to penicillin

== ENCOUNTER 2019-03-17 10:32 | Emergency (ER) | payer BC, OTHER ==
[~2019-03-17] VITALS: Ht 188 cm; Wt 108.9 kg
[~2019-03-17 10:32] MED LIST changes: +TESSALON PERLE100 MG PO; +VENTOLIN HFA 1818 GM INH
[2019-03-17] MEDS ORDERED: FLONASE 0.05%50 MCG NARES (11:51)
[2019-03-17] MEDS ORDERED: TESSALON PERLE100 MG PO (11:51)
[2019-03-17 12:45] VITALS: BP 110/76
== END 2019-03-17 12:17 | disposition home or self-care (01) ==
LOC: ER 10:32
DX: J06.9 Acute upper respiratory infection, unspecified (principal); M06.9 Rheumatoid arthritis, unspecified; Z86.14 Personal history of Methicillin resistant Staphylococcus aureus infection; Z88.0 Allergy status to penicillin

== ENCOUNTER 2019-03-27 18:43 | Emergency (ER) | payer BC, OTHER ==
[~2019-03-27] VITALS: Ht 188 cm; Wt 104.3 kg
[~2019-03-27 18:43] MED LIST changes: +FLONASE 0.05%50 MCG NARES
[2019-03-27] MEDS ORDERED: NORCO 5-325 TA1 EAC1 PO (20:24)
[2019-03-27] MEDS ORDERED: KEFLEX500 M1 PO (20:24)
[2019-03-27 20:32] VITALS: BP 114/69
== END 2019-03-27 20:33 | disposition home or self-care (01) ==
LOC: ER 18:43
DX: L03.032 Cellulitis of left toe (principal); B35.3 Tinea pedis; M06.9 Rheumatoid arthritis, unspecified; Z88.0 Allergy status to penicillin; Z87.01 Personal history of pneumonia (recurrent)

== ENCOUNTER 2020-04-14 01:22 | Emergency (ER) | payer OTHER ==
[~2020-04-14] VITALS: Ht 188 cm; Wt 113.4 kg
[~2020-04-14 01:22] MED LIST changes: +KEFLEX500 M1 PO; +NORCO 5-325 TA1 EAC1 PO
[2020-04-14 02:48] VITALS: BP 142/97
== END 2020-04-14 02:49 | disposition left against medical advice (07) ==
LOC: ER 01:22
DX: M25.562 Pain in left knee (principal); Z79.899 Other long term (current) drug therapy; Z88.0 Allergy status to penicillin

== ENCOUNTER 2020-11-30 10:05 | Emergency (ER) | payer OTHER ==
[~2020-11-30] VITALS: Ht 188 cm; Wt 120.2 kg
[2020-11-30] MEDS ORDERED: PREDNISONE50 MG PO (11:17)
[2020-11-30 11:27] VITALS: BP 140/98
== END 2020-11-30 11:26 | disposition home or self-care (01) ==
LOC: ER 10:05
DX: M25.572 Pain in left ankle and joints of left foot (principal); M06.9 Rheumatoid arthritis, unspecified; Z98.890 Other specified postprocedural states; Z88.0 Allergy status to penicillin

== ENCOUNTER → 2021-05-15 | Outpatient (CLI) | payer OTHER ==
[~2021-05-15] MED LIST changes: +PREDNISONE50 MG PO
== END ==
LOC: SJCVCIMAG 07:17
PROVIDERS: ATTEND Internal Medicine
DX: I07.1 Rheumatic tricuspid insufficiency (principal); R06.02 Shortness of breath; R07.9 Chest pain, unspecified; R60.9 Edema, unspecified; E66.01 Morbid (severe) obesity due to excess calories

== ENCOUNTER 2021-05-26 22:27 | Emergency (ER) | payer OTHER ==
[~2021-05-26] VITALS: Ht 188 cm; Wt 122.5 kg
[2021-05-26 22:35] VITALS: BP 154/86
[2021-05-26] MEDS ORDERED: BACTRIM DS TAB1 EACH PO (22:38)
[2021-05-26] MEDS ORDERED: NORCO 10-325 T1 EACH PO (22:38)
== END 2021-05-26 23:54 | disposition left against medical advice (07) ==
LOC: ER 22:27
DX: M79.604 Pain in right leg (principal); M06.9 Rheumatoid arthritis, unspecified; Z79.899 Other long term (current) drug therapy; Z88.0 Allergy status to penicillin